=== PATIENT | female | born 1980 | race Caucasian/White ===

== ENCOUNTER 2017-04-11 16:35 | Emergency (ER) | payer SELFPAY ==
[2017-04-11 17:30] VITALS: BP 122/56
[2017-04-11 22:39] LABS: Bacteria,Urine 1+ /HPF (Negative); Bilirubin,Urine NEG (Negative); Blood,Urine MOD (Negative); Color,Urine Yellow (Yellow); Mucus,Urine FEW /HPF; Nitrite,Urine NEG (Negative); Protein,Urine <15 mg/dL mg/dL (Negative); Urobilinogen,Urine < 2.0 mg/dL (<2.0)
== END 2017-04-12 09:00 | disposition left against medical advice (07) ==
LOC: ED 16:35
DX: Z53.21 Procedure and treatment not carried out due to patient leaving prior to being seen by health care provider (principal)
CPT/HCPCS: 81001

== ENCOUNTER 2018-06-04 15:33 | Emergency (ER) | payer MEDICAID ==
--- NOTE | 2018-06-04 19:11 | Emergency Department Report ---
Chief Complaint: Neck Pain/Injury Stated Complaint: RT SIDE NECK AND BACK PAIN Time Seen by Provider: 06/04/18 19:08 - HPI History of Present Illness: pt c/o neck pain that began 2 weeks radiating down the right arm, says it feels like "it has fallen asleep" no injury, trauma, or fall, never had before MSE screening note: Focused history and physical exam performed. ED Disposition for MSE Condition: Stable
[2018-06-04] MEDS ORDERED: FLEXERIL PO ONE (19:34)
[2018-06-04] MEDS ORDERED: TORADOL IM ONE (19:34)
[2018-06-04] MEDS ORDERED: DECADRON IM ONE (19:34)
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
[2018-06-04 22:09] LABS: HCG Qualitative,Urine Negative (Negative)
--- NOTE | 2018-06-04 22:28 | XRay Report ---
PROCEDURE: XR SPINE CERVICAL 2-3V TECHNIQUE: Cevical spine, views. HISTORY: neck pain COMPARISONS: None . FINDINGS: Prevertebral soft tissues: Normal . Alignment: There is straightening of the cervical spine . Vertebral body heights/Disk spaces: Normal . Fracture(s): None . Facets: Normal . Bone mineralization: Mild degree marginal osteophyte formation is noted at C5-6 without significant spinal canal compromise. . IMPRESSION: No acute fracture Straightening of the cervical spine is most likely secondary to spasm Mild degree cervical spondylosis at C5-6. This document is electronically signed by Drake Leigh MD., June 04 2018 10:26:09 PM ET
[2018-06-04 23:13] VITALS: BP 120/74
== END 2018-06-04 23:13 | disposition home or self-care (01) ==
LOC: ED 15:33
DX: M54.12 Radiculopathy, cervical region (principal); F17.200 Nicotine dependence, unspecified, uncomplicated
CPT/HCPCS: 72040; 81025; 96372; 99283; J1100; J1885

== ENCOUNTER 2019-08-18 16:52 | Emergency (ER) | payer MEDICAID ==
[2019-08-18 17:54] LABS: Basophils % (Auto) 0.4 % (0.0-1.8); Eosinophils % (Auto) 0.3 % (0.0-4.3); Hematocrit 36.4 % (30.3-42.9); Hemoglobin 12.3 gm/dl (10.1-14.3); Lymphocytes # (Auto) 2.3 K/mm3 (1.2-5.4); Lymphocytes % (Auto) 25.3 % (13.4-35.0); Mean Corpuscular HGB Conc 34 % (30-34); Mean Corpuscular Volume 94 fl (79-97); Monocytes # (Auto) 0.6 K/mm3 (0.0-0.8); Monocytes % (Auto) 6.9 % (0.0-7.3); Platelet Count 326 K/mm3 (140-440); Red Blood Count 3.88 M/mm3 (3.65-5.03); Red Cell Distribution Width 15.1 % (13.2-15.2)
--- NOTE | 2019-08-18 19:17 | Emergency Department Report ---
ED Female HPI - General Chief complaint: Vaginal Bleeding Stated complaint: 6WKS /BLEEDING Time Seen by Provider: 08/18/19 18:48 Source: patient Mode of arrival: Ambulatory Limitations: No Limitations - History of Present Illness Initial comments: This is a 38-year-old female who presents the ED at approximately 6 weeks gestation complaining of right lower quadrant pain earlier vaginal bleeding that has been going on for some days. Patient states that initially about 2 to 3 weeks ago she had some spotting that began but went to her SALES SPECIALIST and was told she could possibly be having a miscarriage but when she followed up with SALES SPECIALIST she was told that her quantitative level went up to about 6000 so she was unsure. Patient states that bleeding has continued intermittently since then. She denies fever/chills/nausea vomiting MD Complaint: vaginal bleeding - Related Data Previous Rx's Medication Instructions Recorded Last Taken Type Diclofenac Dr [Fernie Larkin] 75 mg PO TID #90 tablet 06/04/18 Unknown Rx predniSONE [Deltasone] 40 mg PO QDAY 5 Days #10 tab 06/04/18 Unknown Rx Metaxalone [Skelaxin] 800 mg PO TID #30 tablet 08/18/19 Unknown Rx Ibuprofen [Motrin 800 MG tab] 800 mg PO Q8HR PRN #30 tablet 09/15/19 Unknown Rx bisacodyL [Dulcolax suppos] 10 mg SD ONCE PRN #6 supp.rect 09/15/19 Unknown Rx polyethylene glycoL 3350 [Miralax 17 gm PO BID PRN #14 packet 09/15/19 Unknown Rx 3350] Allergies Allergy/AdvReac Type Severity Reaction Status Date / Time No Known Allergies Allergy Verified 09/14/19 21:54 ED Review of Systems ROS: Stated complaint: 6WKS /BLEEDING Other details as noted in HPI Comment: All other systems reviewed and negative ED Past Medical Hx - Surgical History Additional Surgical History: h/o ectopic -no tubes removed - Social History Smoking Status: Current Every Day Smoker Substance Use Type: Marijuana - Medications Home Medications: Home Medications Medication Instructions Recorded Confirmed Last Taken Type Diclofenac [Fernie Larkin] 75 mg PO TID #90 tablet 06/04/18 Unknown Rx predniSONE [Deltasone] 40 mg PO QDAY 5 Days #10 tab 06/04/18 Unknown Rx Metaxalone [Skelaxin] 800 mg PO TID #30 tablet 08/18/19 Unknown Rx Ibuprofen [Motrin 800 MG tab] 800 mg PO Q8HR PRN #30 tablet 09/15/19 Unknown Rx bisacodyL [Dulcolax suppos] 10 mg SD ONCE PRN #6 supp.rect 09/15/19 Unknown Rx polyethylene glycoL 3350 [Miralax 17 gm PO BID PRN #14 packet 09/15/19 Unknown Rx 3350] ED Physical Exam - General Limitations: No Limitations General appearance: alert, in no apparent distress - Head Head exam: Present: atraumatic, normocephalic - Eye Eye exam: Present: normal appearance - ENT ENT exam: Present: mucous membranes moist - Neck Neck exam: Present: normal inspection - Respiratory Respiratory exam: Present: normal lung sounds bilaterally. Absent: respiratory distress - Cardiovascular Cardiovascular Exam: Present: regular rate, normal rhythm. Absent: systolic m urmur, diastolic murmur, rubs, gallop - GI/Abdominal GI/Abdominal exam: Present: soft, normal bowel sounds - Extremities Exam Extremities exam: Present: normal inspection - Back Exam Back exam: Present: normal inspection - Neurological Exam Neurological exam: Present: alert, oriented X3 - Psychiatric Psychiatric exam: Present: normal affect, normal mood - Skin Skin exam: Present: warm, dry, intact, normal color. Absent: rash ED Course Vital Signs 08/18/19 08/18/19 16:57 21:17 Temperature 98 F 98.2 F Pulse Rate 65 56 L Respiratory 16 18 Rate Blood Pressure 116/65 132/57 [Right] O2 Sat by Pulse 99 98 Oximetry ED Medical Decision Making - Lab Data Result diagrams: 08/18/19 17:09 - Radiology Data Radiology results: report reviewed, image reviewed US OB transvaginal, US OB <= 14 weeks fetus INDICATION / CLINICAL INFORMATION: vag bleed, RLQ pain. COMPARISON: None available. FINDINGS: The uterus is mildly enlarged without evidence of an intrauterine . Endometrial canal measures 3 mm. A small cyst is seen in the right ovary. The left ovary is normal. IMPRESSION: No evidence of an intrauterine . A small cyst is present in the right ovary Signer Name: Ryley Daily MD FACR Signed: 08/18/2019 8:22 PM Workstation Name: [id number] Transcribed By: MS Dictated By: Ryley Daily MD Electronically Authenticated By: Ryley Daily MD Signed Date/Time: 08/18/192021 - Medical Decision Making 38-year-old female presents to ED with complete miscarriage ED course: Pt received ultra sound, CBC, urinalysis, test and quantitative ED All labs within normal limits, Ultrasound shows no intrauterine . See reported above. Patient noted that she was taking Skelaxin for her current back pain and is out of her medication Vital signs normalized patient is in no acute distress. I discussed with the patient if follow-up with her SALES SPECIALIST. I discussed all labs and ultrasound findings with the patient. I discussed with the patient that he if bleeding worsens or new symptoms develop to return to ED immediately Critical care attestation.: If time is entered above; I have spent that time in minutes in the direct care of this critically ill patient, excluding procedure time. ED Disposition Clinical Impression: Right ovarian cyst, Complete miscarriage Disposition: - TO HOME OR SELFCARE Is pt being admited?: No Does the pt Need Aspirin: No Condition: Stable Instructions: Spontaneous Miscarriage (ED), Ovarian Cyst (ED) Additional Instructions: Make sure to follow up with the primary care physician as discussed. Take all your medications as you've been prescribed. If you have any worsening symptoms or develop new symptoms please return to ED immediately. Prescriptions: Metaxalone [Skelaxin] 800 mg PO TID #30 tablet Referrals: KEV PLEASANT PRAIRIEODD MD MARILIN [Primary Care Provider] - 3-5 Days [facility] [Outside] - 3-5 Days [facility] [Outside] - 3-5 Days [facility] [Provider Group] - 3-5 Days Forms: Accompanied Note, Work/School Release Form(ED) Time of Disposition: 21:01
--- NOTE | 2019-08-18 20:26 | Ultrasound Report ---
US OB transvaginal, US OB <= 14 weeks fetus INDICATION / CLINICAL INFORMATION: vag bleed, RLQ pain. COMPARISON: None available. FINDINGS: The uterus is mildly enlarged without evidence of an intrauterine . Endometrial canal measur es 3 mm. A small cyst is seen in the right ovary. The left ovary is normal. IMPRESSION: No evidence of an intrauterine . A small cyst is present in the right ovary Signer Name: Ryley Daily MD FACR Signed: 08/18/2019 8:22 PM Workstation Name: [id number]
[2019-08-18 21:18] VITALS: BP 132/57
== END 2019-08-18 21:18 | disposition home or self-care (01) ==
LOC: ED 16:52
DX: O03.9 Complete or unspecified spontaneous abortion without complication (principal); O26.891 Other specified pregnancy related conditions, first trimester; O99.331 Smoking (tobacco) complicating pregnancy, first trimester; N83.201 Unspecified ovarian cyst, right side; F12.90 Cannabis use, unspecified, uncomplicated; Z79.899 Other long term (current) drug therapy; Z3A.01 Less than 8 weeks gestation of pregnancy; Z98.890 Other specified postprocedural states
CPT/HCPCS: 36415; 76801; 76817; 84702; 84703; 85025; 86900; 86901

== ENCOUNTER 2019-09-14 21:44 | Emergency (ER) | payer MEDICAID ==
[2019-09-14 21:55] VITALS: BP 116/59
[2019-09-15 00:41] LABS: Bilirubin,Urine NEG (Negative); Blood,Urine NEG (Negative); Color,Urine Yellow (Yellow); Mucus,Urine 2+ /HPF; Protein,Urine <15 mg/dL mg/dL (Negative)
[2019-09-15 00:48] LABS: HCG Qualitative,Urine Positive (Negative)
[2019-09-15 02:20] LABS: Basophils % (Auto) 0.3 % (0.0-1.8); Eosinophils % (Auto) 0.5 % (0.0-4.3); Hematocrit 35.3 % (30.3-42.9); Hemoglobin 11.7 gm/dl (10.1-14.3); Lymphocytes # (Auto) 3.1 K/mm3 (1.2-5.4); Lymphocytes % (Auto) 34.7 % (13.4-35.0); Mean Corpuscular HGB Conc 33 % (30-34); Mean Corpuscular Volume 96 fl (79-97); Monocytes # (Auto) 0.6 K/mm3 (0.0-0.8); Monocytes % (Auto) 6.2 % (0.0-7.3); Platelet Count 304 K/mm3 (140-440); Red Cell Distribution Width 14.8 % (13.2-15.2)
--- NOTE | 2019-09-15 02:25 | Emergency Department Report ---
ED Abdominal Pain HPI - General Chief Complaint: Abdominal Pain Stated Complaint: LOWER PELVIC PAIN Time Seen by Provider: 09/14/19 23:59 Source: patient Mode of arrival: Ambulatory Limitations: No Limitations - History of Present Illness Initial Comments: pt is a , 38-year-old -[place] female status post miscarriage on 08/18/2019. Patient is followed by [facility]. She is G3, . States last hCG quant was 360 on 527. Patient denies dysuria ,frequency, or urgency. She denies vaginal bleeding or discharge. However abdominal pain is getting worse described as 6/10 cramping. Symptoms are relieved by nothing tried. Symptoms are exacerbated by movement and palpation. MD Complaint: abdominal pain Onset/Timin -: days(s) Location: LLQ, RLQ Radiation: suprapubic Migration to: suprapubic Severity: moderate Severity scale (0 -10): 6 Quality: cramping, aching Consistency: constant Improves With: nothing Worsens With: nothing Associated Symptoms: denies: nausea, vomiting, diarrhea, fever, chills, constipation, dysuria, melena - Related Data LMP Date: 06/14/19 Previous Rx's Medication Instructions Recorded Last Taken Type Diclofenac Dr [Voltaren Dr] 75 mg PO TID #90 tablet 06/04/18 Unknown Rx predniSONE [Deltasone] 40 mg PO QDAY 5 Days #10 tab 06/04/18 Unknown Rx Metaxalone [Skelaxin] 800 mg PO TID #30 tablet 08/18/19 Unknown Rx Ibuprofen [Motrin 800 MG tab] 800 mg PO Q8HR PRN #30 tablet 09/15/19 Unknown Rx Allergies Allergy/AdvReac Type Severity Reaction Status Date / Time No Known Allergies Allergy Verified 09/14/19 21:54 ED Review of Systems ROS: Stated complaint: LOWER PELVIC PAIN Other details as noted in HPI Constitutional: denies: chills, fever Eyes: denies: eye pain, eye discharge, vision change ENT: denies: ear pain, throat pain Respiratory: denies: cough, shortness of breath, wheezing Cardiovascular: denies: chest pain, palpitations Endocrine: no symptoms reported Gastrointestinal: abdominal pain, nausea, hematemesis. denies: diarrhea, constipation, melena, hematochezia Genitourinary: denies: urgency, dysuria, frequency, hematuria, discharge Musculoskeletal: denies: back pain, joint swelling, arthralgia Skin: denies: rash, lesions Neurological: as per HPI Psychiatric: denies: anxiety, depression Hematological/Lymphatic: denies: easy bleeding, easy bruising ED Past Medical Hx - Past Medical History Previous Medical History?: Yes Additional medical history: ovarian cyst - Surgical History Past Surgical History?: Yes Additional Surgical History: h/o ectopic -no tubes removed - Social History Smoking Status: Current Every Day Smoker Substance Use Type: Alcohol - Medications Home Medications: Home Medications Medication Instructions Recorded Confirmed Last Taken Type Diclofenac Dr [Voltaren Dr] 75 mg PO TID #90 tablet 06/04/18 Unknown Rx predniSONE [Deltasone] 40 mg PO QDAY 5 Days #10 tab 06/04/18 Unknown Rx Metaxalone [Skelaxin] 800 mg PO TID #30 tablet 08/18/19 Unknown Rx Ibuprofen [Motrin 800 MG tab] 800 mg PO Q8HR PRN #30 tablet 09/15/19 Unknown Rx ED Physical Exam - General Limitations: No Limitations General appearance: alert, in no apparent distress - Head Head exam: Present: atraumatic, normocephalic - Eye Eye exam: Present: normal appearance, EOMI - ENT ENT exam: Present: mucous membranes moist - Neck Neck exam: Present: normal inspection, full ROM. Absent: tenderness - Respiratory Respiratory exam: Present: normal lung sounds bilaterally. Absent: respiratory distress, wheezes, stridor - Cardiovascular Cardiovascular Exam: Present: regular rate, normal rhythm, normal heart sounds. Absent: systolic murmur, diastolic murmur, rubs, gallop - GI/Abdominal GI/Abdominal exam: Present: soft, tenderness (bilat lower abd ), normal bowel sounds. Absent: distended, guarding, rebound, bruit, hernia - Rectal Rectal exam: Present: deferred - Extremities Exam Extremities exam: Present: normal inspection - Back Exam Back exam: Present: normal inspection, full ROM. Absent: tenderness, CVA tender ness (R), CVA tenderness (L) - Neurological Exam Neurological exam: Present: alert, oriented X3, CN II-XII intact, normal gait, reflexes normal - Psychiatric Psychiatric exam: Present: normal affect, normal mood. Absent: depressed - Skin Skin exam: Present: warm, dry, intact, normal color. Absent: rash ED Course Vital Signs 09/14/19 09/14/19 21:51 21:54 Temperature 98.7 F Pulse Rate 77 77 Respiratory 18 Rate Blood Pressure 116/59 [Right] O2 Sat by Pulse 100 100 Oximetry ED Medical Decision Making - Lab Data Result diagrams: 09/15/19 01:47 Labs 09/15/19 09/15/19 09/15/19 00:06 01:47 01:47 WBC 9.0 RBC 3.70 Hgb 11.7 Hct 35.3 MCV 96 MCH 32 MCHC 33 RDW 14.8 Plt Count 304 Lymph % (Auto) 34.7 Glades % (Auto) 6.2 Eos % (Auto) 0.5 Baso % (Auto) 0.3 Lymph # 3.1 Glades # 0.6 Eos # 0.0 Baso # 0.0 Seg Neutrophils % 58.3 Seg Neutrophils # 5.2 HCG, Quant 104.9 H Urine Color Yellow Urine Turbidity Slightly-cloudy Urine pH 6.0 Ur Specific Gilbert 1.033 H Urine Protein <15 mg/dl Urine Glucose (UA) Neg Urine Ketones Neg Urine Blood Neg Urine Nitrite Neg Urine Bilirubin Neg Urine Urobilinogen 4.0 Ur Leukocyte Esterase Neg Urine WBC (Auto) 1.0 Urine RBC (Auto) 2.0 U Epithel Cells (Auto) 21.0 H Urine Mucus 2+ Urine HCG, Qual Positive A Blood Type 09/15/19 01:47 WBC RBC Hgb Hct MCV MCH MCHC RDW Plt Count Lymph % (Auto) Glades % (Auto) Eos % (Auto) Baso % (Auto) Lymph # Glades # Eos # Baso # Seg Neutrophils % Seg Neutrophils # HCG, Quant Urine Color Urine Turbidity Urine pH Ur Specific Gilbert Urine Protein Urine Glucose (UA) Urine Ketones Urine Blood Urine Nitrite Urine Bilirubin Urine Urobilinogen Ur Leukocyte Esterase Urine WBC (Auto) Urine RBC (Auto) U Epithel Cells (Auto) Urine Mucus Urine HCG, Qual Blood Type O POSITIVE - Radiology Data Radiology results: report reviewed, image reviewed Findings Reporting MD: Santos Hedrick Dictation Time: September 15, 2019 02:12 [employer] 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 COMPARISON: 08/18/2019 FINDINGS: Again, there is no evidence of intrauterine . Right ovary contains a 1 cm cyst. Both ovaries are otherwise normal. No significant free fluid. IMPRESSION: 1. No intrauterine . Small right ovarian cyst is unchanged. Signer Name: Santos Hedrick MD Signed: 09/15/2019 2:12 AM Workstation Name: [email or web address] - Medical Decision Making uS: small ovarian Cyst, no retained parts of conception.,UA:, cbc, norm., hcg: pos, hcg quant: 129, pt has good obgyn follow up , plan nsaids, follow up with obgyn, pt return to emergency if symptoms worsen. pt verbalized agreement and understanding of same. Critical care attestation.: If time is entered above; I have spent that time in minutes in the direct care of this critically ill patient, excluding procedure time. ED Disposition Clinical Impression: Abdominal pain Qualifiers: Abdominal location: lower abdomen, unspecified Qualified Code(s): R10.30 - Lower abdominal pain, unspecified Disposition: DC-01 TO HOME OR SELFCARE Is pt being admited?: No Does the pt Need Aspirin: No Condition: Stable Instructions: Abdominal Pain (ED) Prescriptions: Ibuprofen [Motrin 800 MG tab] 800 mg PO Q8HR PRN #30 tablet PRN Reason: pain Referrals: [facility] [Provider Group] - 3-5 Days Forms: Work/School Release Form(ED) Time of Disposition: 03:58
--- NOTE | 2019-09-15 03:16 | Ultrasound Report ---
US OB transvaginal, US OB <= 14 weeks fetus INDICATION / CLINICAL INFORMATION: abd pain pos preg. COMPARISON: 08/18/2019 FINDINGS: Again, there is no evidence of intrauterine . Right ovary contains a 1 cm cyst. Both ovaries are otherwise normal. No significant free fluid. IMPRESSION: 1. No intrauterine . Small right ovarian cyst is unchanged. Signer Name: Santos Hedrick MD Signed: 09/15/2019 3:12 AM Workstation Name: [email or web address]
[2019-09-15] MEDS ORDERED: ONDANSETRON 4 MG/2 ML INJ IM ONE (04:23)
[2019-09-15] MEDS ORDERED: MORPHINE 4 MG/1 ML INJ IM ONE (04:23)
[2019-09-15] MEDS ORDERED: MORPHINE 4 MG/1 ML INJ ONE (04:24)
[2019-09-15] MEDS ORDERED: ONDANSETRON 4 MG/2 ML INJ ONE (04:24)
--- NOTE | 2019-09-15 05:45 | Cat Scan Report ---
CT abdomen pelvis wo con INDICATION: Patient complains of L.L.Q. abdominal pain. Miscarriage on 08/18/2019. Patient states much of her carol n is within her vagina. Hx of a ectopic , but no surgical history.. TECHNIQUE: All CT scans at this location are performed using CT dose reduction for ALARA by means of automated e xposure control. COMPARISON: None available. FINDINGS: Lung bases are clear of acute disease. Liver, gallbladder, spleen, pancreas, kidneys and adrenals are negative. Abdominal aorta is normal in size. No adenopathy. Pelvis Urinary bladder and distal ureters are negative. Uterus is slightly enlarged. No free fluid or inflam matory change. No significant bowel abnormalities. No skeletal lesions. IMPRESSION: 1. No acute abnormalities. Signer Name: Santos Hedrick MD Signed: 09/15/2019 5:40 AM Workstation Name: [id number]
== END 2019-09-15 05:50 | disposition home or self-care (01) ==
LOC: ED 21:44
DX: R10.2 Pelvic and perineal pain (principal); F17.200 Nicotine dependence, unspecified, uncomplicated; Z98.890 Other specified postprocedural states; Z79.1 Long term (current) use of non-steroidal anti-inflammatories (NSAID); Z79.899 Other long term (current) drug therapy
CPT/HCPCS: 36415; 74176; 76801; 76817; 81001; 81025; 84702; 85025; 86900; 86901; 96372; 99284; J2270; J2405

== ENCOUNTER 2021-03-25 04:48 | Emergency (ER) | payer MEDICAID, OTHER ==
[2021-03-25] MEDS ORDERED: IBUPROFEN 600 MG TAB PO ONE (05:02)
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
[2021-03-25 07:08] VITALS: BP 129/85
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
== END 2021-03-25 08:15 | disposition home or self-care (01) ==
LOC: ED 04:48
DX: M62.830 Muscle spasm of back (principal); M62.838 Other muscle spasm; F10.20 Alcohol dependence, uncomplicated; V89.2XXA Person injured in unspecified motor-vehicle accident, traffic, initial encounter; Y93.89 Activity, other specified; Y92.89 Other specified places as the place of occurrence of the external cause; Y99.8 Other external cause status
CPT/HCPCS: 36415; 70450; 72125; 72131; 84703; 99284